=== PATIENT | male | born 1945 | race Caucasian/White ===

== ENCOUNTER 2021-08-24 18:47 | Emergency (ER) | payer MEDICARE, OTHER | END 2021-08-24 20:03 | disposition home or self-care (01) | LOC: MERGE 18:47 → LB.ED 18:47 | DX: S40.212A Abrasion of left shoulder, initial encounter (principal); W18.30XA Fall on same level, unspecified, initial encounter; Y92.009 Unspecified place in unspecified non-institutional (private) residence as the place of occurrence of the external cause | CPT/HCPCS: 73030; 99283; A0425; A0429; 99281 ==